=== PATIENT | male | born 1995 | race Caucasian/White ===

== ENCOUNTER 2017-11-12 13:30 | Emergency (ER) | payer OTHER ==
[~2017-11-12] VITALS: Ht 172.7 cm; Wt 77.3 kg
[2017-11-12] MEDS ORDERED: LORazepam 1 MG TABLET PO ONE (15:30)
[2017-11-12 17:25] VITALS: BP 142/93
[2017-11-12 17:25] LABS: AMPHET/METH SCREEN,URINE NEGATIVE (NEGATIVE); BARBITURATE SCREEN, URINE NEGATIVE (NEGATIVE); BENZODIAZEPINES SCREEN,URINE NEGATIVE (NEGATIVE); CANNABINOID SCREEN,URINE NEGATIVE (NEGATIVE); COCAINE SCREEN,URINE POSITIVE (NEGATIVE); METHADONE SCREEN, URINE NEGATIVE (NEGATIVE); OPIATE SCREEN,URINE NEGATIVE (NEGATIVE); PHENCYCLIDINE SCREEN,URINE NEGATIVE (NEGATIVE)
== END 2017-11-12 17:45 | disposition home or self-care (01) ==
LOC: EMS 13:34
DX: F41.9 Anxiety disorder, unspecified (principal); F14.10 Cocaine abuse, uncomplicated
CPT/HCPCS: 93005; 99285